=== PATIENT | female | born 1985 | race Caucasian/White ===

== ENCOUNTER 2021-10-22 09:34 | Outpatient (CLI) | payer BC | END 2021-10-22 09:35 | disposition home or self-care (01) | LOC: CSHLAB 09:34 | PROVIDERS: ATTEND Surgery | DX: Z20.822 Contact with and (suspected) exposure to COVID-19 (principal); Q85.9 Phakomatosis, unspecified | CPT/HCPCS: U0003; U0005 ==

== ENCOUNTER 2021-10-25 06:15 | Day surgery (SDC) | payer BC ==
[2021-10-22 14:57] VITALS: BMI 27.3
[2021-10-25] MEDS ORDERED: EPINEPHrine 1 MG/ML AMP ONE (06:41)
[2021-10-25] MEDS ORDERED: Bupivacaine PF 0.5% 30 ML VIAL ONE (06:41)
[2021-10-25] MEDS ORDERED: CEFAZOLIN 1 GM VIAL ONE (07:19)
[2021-10-25] MEDS ORDERED: Lidocaine 1% MPF 2 ML VIAL ONE (07:27)
[2021-10-25] MEDS ORDERED: Fentanyl 100 MCG/2 ML VIAL ONE (07:51)
[2021-10-25] MEDS ORDERED: PROPOFOL 20 ML ONE (07:51)
[2021-10-25] MEDS ORDERED: Midazolam HCl 2 mg/2 ml Vial ONE (07:51)
[2021-10-25] MEDS ORDERED: Acetaminophen 325 MG TAB PO PRN (08:39)
[2021-10-25] MEDS ORDERED: HYDROcodone/Acetaminophen 5/325 mg Tablet PO PRN (08:39)
[2021-10-25] MEDS ORDERED: Meperidine HCl/PF 25 MG/ML VIAL ONE (08:41)
== END 2021-10-25 09:43 | disposition home or self-care (01) ==
LOC: CSHSDC 06:15
PROVIDERS: ATTEND Surgery
PROC: 0HBU0ZZ Excision of Left Breast, Open Approach (ICD-10-PCS; principal; 2021-10-25)
DX: Q85.9 Phakomatosis, unspecified (principal); N60.22 Fibroadenosis of left breast; I10 Essential (primary) hypertension; Z79.899 Other long term (current) drug therapy; Z88.6 Allergy status to analgesic agent; Z91.048 Other nonmedicinal substance allergy status
CPT/HCPCS: 88307; J0171; J0690; J2175; J2250; J2704; J3010; S0020